=== PATIENT | male | born 2000 | race Caucasian/White ===

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

== ENCOUNTER 2022-10-08 10:37 | Emergency (ER) | payer OTHER ==
[~2022-10-08] VITALS: Ht 180.3 cm; Wt 84.5 kg
[~2022-10-08 10:37] MED LIST changes: +ACET-683 PO; +ECOT81TA5 PO; -LIDOCAINE 2% 100MG/5ML SDV (FOR ANES.) As Ordered ONE; -LR 1,000 ML IV ONE; +OXYC-517 PO; -ceFAZolin SOD 2 GM in IV 1 EA IV ONE; -fentaNYL 250 MCG/5 ML INJECTION (J3010) As Ordered ONE; -propofoL 200 MG/20 ML VIAL As Ordered ONE; -propofoL 500 MG/50 ML VIAL As Ordered ONE
[2022-10-08] MEDS ORDERED: BENA25CA4 PO (10:47)
[2022-10-08] MEDS ORDERED: MUPI30CR TOP (11:23)
[2022-10-08] MEDS ORDERED: AMOX875T2 PO (11:23)
[2022-10-08 11:37] VITALS: BP 133/68
== END 2022-10-08 11:41 | disposition home or self-care (01) ==
LOC: M ED 10:37
DX: J34.89 Other specified disorders of nose and nasal sinuses (principal); F17.290 Nicotine dependence, other tobacco product, uncomplicated

== ENCOUNTER 2023-08-08 16:19 | Emergency (ER) | payer OTHER ==
[~2023-08-08] VITALS: Ht 180.3 cm; Wt 97.7 kg
[~2023-08-08 16:19] MED LIST changes: +AMOX875T2 PO; +BENA25CA4 PO; +MUPI30CR TOP
[2023-08-08 16:20] VITALS: BP 141/74; TEMP 97.9; O2SAT 98
== END 2023-08-08 19:31 | disposition left against medical advice (07) ==
LOC: M ED 16:19
DX: Z53.21 Procedure and treatment not carried out due to patient leaving prior to being seen by health care provider (principal)